=== PATIENT | male | born 1965 | race Caucasian/White ===

== ENCOUNTER 2016-06-15 13:57 | Day surgery (SDC) | payer BC ==
[~2016-06-15] VITALS: Ht 180.3 cm; Wt 100.0 kg
[~2016-06-15 13:57] MED LIST: COLACE 100100 MG/CAP PO; HYGROTON25 MG PO; NORCO 325 MG-51 TAB PO; NORVASC 5MG5 MG/TAB PO; PYRIDIUM200 M1 PO
[2016-06-15 14:35] VITALS: BP 136/89; PULSE 80; TEMP 97.1
[2016-06-15] MEDS ORDERED: FLOMAX 0.40.4 MG/CAP PO (14:44)
[2016-06-15] MEDS ORDERED: SYNTHROID0.05 MG/TA PO (14:45)
[2016-06-15] MEDS ORDERED: CIPRO 500MG TA500 MG (14:45)
[2016-06-15 21:00] VITALS: BP 137/92; PULSE 71; TEMP 97.2
[2016-06-15 22:13] VITALS: BP 164/117; PULSE 98; TEMP 98
== END 2016-06-15 23:40 | disposition home or self-care (01) ==
LOC: SDCO 13:57 → SURG 20:40 → SDCO 23:40
DX: N20.2 Calculus of kidney with calculus of ureter (principal); I10 Essential (primary) hypertension
CPT/HCPCS: OP; C1769; C1894; J0690; J1885; J2704; J2765; J3010; J7120; Q9967

== ENCOUNTER → 2016-06-20 | Outpatient (CLI) | payer BC ==
[~2016-06-20] MED LIST changes: +CIPRO 500MG TA500 MG; +FLOMAX 0.40.4 MG/CAP PO; +SYNTHROID0.05 MG/TA PO
== END ==
LOC: COL.RAD 11:31
DX: N13.39 Other hydronephrosis (principal); N20.1 Calculus of ureter; R10.12 Left upper quadrant pain

== ENCOUNTER → 2016-07-01 | Outpatient (CLI) | payer BC | LOC: COL.RAD 08:11 | DX: N20.1 Calculus of ureter (principal); R10.12 Left upper quadrant pain ==

== ENCOUNTER 2016-11-15 10:30 | Outpatient (RCR) | payer OTHER | END 2016-12-09 14:37 | disposition still patient (30) | LOC: WSOH 10:30 | DX: S93.401A Sprain of unspecified ligament of right ankle, initial encounter (principal); X50.1XXA Overexertion from prolonged static or awkward postures, initial encounter; Y93.01 Activity, walking, marching and hiking; Y92.488 Other paved roadways as the place of occurrence of the external cause; Y99.0 Civilian activity done for income or pay | CPT/HCPCS: 26642; L1930 ==

== ENCOUNTER → 2017-06-14 | Outpatient (CLI) | payer OTHER | LOC: COL.RAD 09:09 | DX: S96.811D Strain of other specified muscles and tendons at ankle and foot level, right foot, subsequent encounter (principal); S93.491D Sprain of other ligament of right ankle, subsequent encounter ==

== ENCOUNTER 2017-07-12 15:18 | Outpatient (RCR) | payer OTHER | END 2017-09-04 | disposition home or self-care (01) | LOC: WSOH | DX: S93.401D Sprain of unspecified ligament of right ankle, subsequent encounter (principal); X58.XXXD Exposure to other specified factors, subsequent encounter; Y99.0 Civilian activity done for income or pay; Z79.899 Other long term (current) drug therapy ==

== ENCOUNTER 2018-05-14 16:45 | Outpatient (RCR) | payer OTHER | END 2018-05-20 | disposition home or self-care (01) | LOC: WSC | DX: Z47.89 Encounter for other orthopedic aftercare (principal) | CPT/HCPCS: G0283-GP ==

== ENCOUNTER 2018-06-04 15:45 | Outpatient (RCR) | payer OTHER | END 2018-06-26 16:20 | disposition home or self-care (01) | LOC: WSC 15:45 | DX: M76.71 Peroneal tendinitis, right leg (principal) ==

== ENCOUNTER 2019-05-06 15:30 | Outpatient (RCR) | payer OTHER | END 2019-07-09 | disposition still patient (30) | LOC: WSC | DX: M79.671 Pain in right foot (principal); Z98.890 Other specified postprocedural states ==

== ENCOUNTER 2020-02-28 15:15 | Outpatient (RCR) | payer OTHER | END 2020-03-16 | disposition home or self-care (01) | LOC: WSC | DX: Z89.431 Acquired absence of right foot (principal) ==

== ENCOUNTER 2020-03-17 13:41 | Outpatient (RCR) | payer OTHER | END 2020-06-15 | disposition still patient (30) | LOC: WSC | DX: Z98.890 Other specified postprocedural states (principal) ==